=== PATIENT | male | born 1960 | race Hispanic/Latino ===

== ENCOUNTER 2023-10-05 20:08 | Emergency (ER) | payer BC ==
[~2023-10-05] VITALS: Ht 172.7 cm; Wt 113.4 kg
[2023-10-05 20:40] VITALS: RESP 19; TEMP 98.7
[2023-10-05 21:21] LABS: BASOPHILS % 0.5 % (0.0-1.0); EOSINOPHILS # (AUTO) 0.4 (0.0-0.4); EOSINOPHILS % 5.9 % (0.0-6.0); HEMATOCRIT 29.4 % (38.2-49.6); HEMOGLOBIN 10.1 g/dL (14.0-18.0); LYMPHOCYTES # (AUTO) 1.5 (1.0-3.2); LYMPHOCYTES % 23.4 % (18.0-39.1); MEAN CORPUSCULAR HEMOGLOBIN 32.9 pg (28-32); MEAN CORPUSCULAR HGB CONC 34.4 g/dL (31-35); MEAN CORPUSCULAR VOLUME 95.8 fL (81-99); MONOCYTES # (AUTO) 0.6 (0.2-0.8); MONOCYTES % 8.9 % (4.4-11.3); NEUTROPHILS # (AUTO) 3.8 (2.1-6.9); PLATELET COUNT 104 x10e3/uL (140-360); RED BLOOD COUNT 3.07 x10e6/uL (4.3-5.7); RED CELL DISTRIBUTION WIDTH 13.3 % (11.7-14.4); WHITE BLOOD COUNT 6.27 x10e3/uL (4.8-10.8)
[2023-10-05 21:22] LABS: CLARITY,URINE CLEAR (CLEAR); COLOR,URINE YELLOW (YELLOW); GLUCOSE, URINE 500 (NEGATIVE); KETONES,URINE NEGATIVE (NEGATIVE); LEUKOCYTE ESTERASE ,URINE NEGATIVE (NEGATIVE); NITRITE,URINE NEGATIVE (NEGATIVE); PH,URINE 6.5 (5 - 7); PROTEIN,URINE DIPSTICK NEGATIVE (NEGATIVE)
[2023-10-05 21:23] LABS: BILIRUBIN,URINE NEGATIVE (NEGATIVE); URINE UROBILINOGEN 4 mg/dL (0.2 - 1)
[2023-10-05 21:43] LABS: BACTERIA,URINE RARE /HPF; EPITHELIAL CELLS,URINE FEW /LPF; RBC,URINE 0-5 /HPF (0-5); WBC,URINE (MAN) 0-5 /HPF (0-5)
[2023-10-05 22:13] LABS: ANION GAP 13.7 mmol/L (8-16); BILIRUBIN,TOTAL 0.4 mg/dL (0.2-1.2); CALCIUM 8.3 mg/dL (8.4-10.2); CREATININE, SERUM 0.73 mg/dL (0.72-1.25); POTASSIUM 3.7 mmol/L (3.5-5.1); TOTAL PROTEIN 5.9 g/dL (6.5-8.1)
[2023-10-05 22:15] VITALS: PULSE 80
[2023-10-05] MEDS ORDERED: IOPAMIDOL 370 MG/ML 100 ML INFUS..BTL INJ ONE (22:22)
[2023-10-05] MEDS: SODIUM CHLORIDE 0.9% 1000ML 1,000 ML IV STA (22:58)
[2023-10-05] MEDS: INSULIN REGULAR, HUMAN 100 UNIT/1 ML IV STA (22:58)
[2023-10-05] MEDS ORDERED: PROTONIX20 MG PO (23:22)
[2023-10-05] MEDS ORDERED: ULTRAM 50MG50 MG PO (23:23)
[2023-10-06 00:19] VITALS: BP 125/79; O2SAT 96
== END 2023-10-06 00:06 | disposition home or self-care (01) ==
LOC: ER 20:37
DX: M79.605 Pain in left leg (principal); R73.9 Hyperglycemia, unspecified; R19.5 Other fecal abnormalities; K21.9 Gastro-esophageal reflux disease without esophagitis
CPT/HCPCS: 36415; 73590; 74174; 80053; 81001; 82948; 85025; 99284; J7030; Q9967

== ENCOUNTER → 2023-12-27 | Outpatient (REF) | payer BC ==
[~2023-12-27] MED LIST: GLIPIZIDE ER5 MG PO; PROPRANOLOL HCL10 MG PO; PROTONIX20 MG PO; ULTRAM 50MG50 MG PO
== END ==
LOC: US 08:05
PROVIDERS: ATTEND Nurse Practitioner
DX: K70.30 Alcoholic cirrhosis of liver without ascites (principal); I85.00 Esophageal varices without bleeding; K80.20 Calculus of gallbladder without cholecystitis without obstruction
CPT/HCPCS: 76705

== ENCOUNTER 2024-01-08 11:59 | Emergency (ER) | payer BC ==
[~2024-01-08] VITALS: Ht 172.7 cm; Wt 115.2 kg
[~2024-01-08 11:59] MED LIST changes: -FENTANYL CITRATE/PF 100MCG/2 ML INJ ONE; -HYOSCYAMINE SULFATE 0.5 MG/ML INJ ONE; -LIDOCAINE HCL 2% LOCAL INJ 5 ML SDV VIAL INJ ONE; -ONDANSETRON ODT4 MG PO; -PANTOPRAZOLE SO40 MG PO; -PROPOFOL IV EMULSION 10 MG/ML 20 ML VIAL ONE; -REGLAN5 MG PO
[2024-01-08 12:05] VITALS: TEMP 98.1
[2024-01-08 12:52] LABS: BASOPHILS % 0.8 % (0.0-1.0); EOSINOPHILS # (AUTO) 0.2 (0.0-0.4); EOSINOPHILS % 6.5 % (0.0-6.0); HEMATOCRIT 38.4 % (38.2-49.6); HEMOGLOBIN 12.1 g/dL (14.0-18.0); LYMPHOCYTES # (AUTO) 0.9 (1.0-3.2); LYMPHOCYTES % 24.2 % (18.0-39.1); MEAN CORPUSCULAR HEMOGLOBIN 27.7 pg (28-32); MEAN CORPUSCULAR HGB CONC 31.5 g/dL (31-35); MEAN CORPUSCULAR VOLUME 87.9 fL (81-99); MONOCYTES # (AUTO) 0.4 (0.2-0.8); MONOCYTES % 11.6 % (4.4-11.3); NEUTROPHILS # (AUTO) 2.1 (2.1-6.9); NEUTROPHILS % 56.6 % (38.7-80.0); PLATELET COUNT 81 x10e3/uL (140-360); RED BLOOD COUNT 4.37 x10e6/uL (4.3-5.7); RED CELL DISTRIBUTION WIDTH 15.2 % (11.7-14.4); WHITE BLOOD COUNT 3.72 x10e3/uL (4.8-10.8)
[2024-01-08] MEDS: SODIUM CHLORIDE 0.9% 500ML 500 ML IV ONE (13:08)
[2024-01-08 13:12] LABS: ALBUMIN 3.5 g/dL (3.5-5.0); ANION GAP 11.8 mmol/L (8-16); BILIRUBIN,TOTAL 0.8 mg/dL (0.2-1.2); CALCIUM 8.9 mg/dL (8.4-10.2); CREATININE, SERUM 0.71 mg/dL (0.72-1.25); POTASSIUM 3.8 mmol/L (3.5-5.1); TOTAL PROTEIN 7.1 g/dL (6.5-8.1)
[2024-01-08 13:17] LABS: TROPONIN I 0.006 ng/mL (0-0.300)
[2024-01-08 14:12] VITALS: PULSE 68; RESP 13; O2SAT 100
[2024-01-12] MEDS ORDERED: REGLAN5 MG PO (11:39)
[2024-01-12] MEDS ORDERED: PANTOPRAZOLE SO40 MG PO (11:39)
[2024-01-12] MEDS ORDERED: ONDANSETRON ODT4 MG PO (11:39)
== END 2024-01-08 14:14 | disposition home or self-care (01) ==
LOC: ER 12:04
DX: R06.00 Dyspnea, unspecified (principal); K76.9 Liver disease, unspecified; R10.11 Right upper quadrant pain; E11.9 Type 2 diabetes mellitus without complications; K21.9 Gastro-esophageal reflux disease without esophagitis
CPT/HCPCS: 36415; 71045; 80053; 84484; 85025; 93005; 99284; J7040

== ENCOUNTER → 2024-01-08 | Day surgery (SDC) | payer BC ==
[~2024-01-08] MED LIST changes: +FENTANYL CITRATE/PF 100MCG/2 ML INJ ONE; +HYOSCYAMINE SULFATE 0.5 MG/ML INJ ONE; +LIDOCAINE HCL 2% LOCAL INJ 5 ML SDV VIAL INJ ONE; +ONDANSETRON ODT4 MG PO; +PANTOPRAZOLE SO40 MG PO; +PROPOFOL IV EMULSION 10 MG/ML 20 ML VIAL ONE; +REGLAN5 MG PO
[2024-01-08] MEDS: LACTATED RINGER'S 1,000 ML ONE (08:07)
[2024-01-08 10:11] VITALS: TEMP 97.8
[2024-01-08] MEDS: FENTANYL CITRATE/PF 100MCG/2 ML INJ ONE (10:45)
[2024-01-08 10:55] VITALS: BP 135/89; PULSE 72; RESP 16; O2SAT 97
[2024-01-08 10:59] LABS: CHOL/HDL RATIO 2.4 (3.9-4.7)
== END | disposition home or self-care (01) ==
LOC: OR 07:32
PROVIDERS: ATTEND Internal Medicine Gastroenterology
DX: K74.60 Unspecified cirrhosis of liver (principal); I85.10 Secondary esophageal varices without bleeding; K31.7 Polyp of stomach and duodenum; K29.70 Gastritis, unspecified, without bleeding; K44.9 Diaphragmatic hernia without obstruction or gangrene; K76.6 Portal hypertension; K31.89 Other diseases of stomach and duodenum; K22.89 Other specified disease of esophagus; K21.9 Gastro-esophageal reflux disease without esophagitis; D64.9 Anemia, unspecified; E75.5 Other lipid storage disorders; E11.9 Type 2 diabetes mellitus without complications; E66.9 Obesity, unspecified; Z88.8 Allergy status to other drugs, medicaments and biological substances; Z79.84 Long term (current) use of oral hypoglycemic drugs; Z79.899 Other long term (current) drug therapy
CPT/HCPCS: 36415; 43239; 43244; 80061; J2003; J2470; J2704; J3010; J7121; 43255; J1980

== ENCOUNTER 2024-01-09 11:25 | Inpatient (IN) | payer BC ==
[~2024-01-09] VITALS: Ht 172.7 cm; Wt 114.8 kg
[2024-01-09 11:25] VITALS: TEMP 98.4
[2024-01-09 12:25] LABS: HEMATOCRIT 39.3 % (38.2-49.6); HEMOGLOBIN 12.6 g/dL (14.0-18.0); LYMPHOCYTES # (AUTO) 0.7 (1.0-3.2); LYMPHOCYTES % 9.4 % (18.0-39.1); MEAN CORPUSCULAR HEMOGLOBIN 27.8 pg (28-32); MEAN CORPUSCULAR HGB CONC 32.1 g/dL (31-35); MEAN CORPUSCULAR VOLUME 86.6 fL (81-99); MONOCYTES # (AUTO) 0.6 (0.2-0.8); MONOCYTES % 7.6 % (4.4-11.3); NEUTROPHILS # (AUTO) 6.3 (2.1-6.9); NEUTROPHILS % 82.6 % (38.7-80.0); RED BLOOD COUNT 4.54 x10e6/uL (4.3-5.7); RED CELL DISTRIBUTION WIDTH 15.3 % (11.7-14.4); WHITE BLOOD COUNT 7.59 x10e3/uL (4.8-10.8)
[2024-01-09 12:26] LABS: PLATELET COUNT 98 x10e3/uL (140-360)
[2024-01-09 12:27] LABS: INR 1.13; PROTHROMBIN TIME 15.2 seconds (11.9-14.5)
[2024-01-09 12:28] LABS: PARTIAL THROMBOPLASTIN TIME 26.9 seconds (23.8-35.5)
[2024-01-09 12:39] LABS: ALBUMIN 3.6 g/dL (3.5-5.0); ALBUMIN/GLOBULIN RATIO 0.9 (0.8-2.0); ANION GAP 13.6 mmol/L (8-16); BILIRUBIN,TOTAL 1.1 mg/dL (0.2-1.2); CALCIUM 9.1 mg/dL (8.4-10.2); CREATININE, SERUM 0.76 mg/dL (0.72-1.25); MAGNESIUM 1.8 MG/DL (1.3-2.1); POTASSIUM 3.6 mmol/L (3.5-5.1); TOTAL PROTEIN 7.4 g/dL (6.5-8.1)
[2024-01-09 12:45] LABS: TROPONIN I 0.017 ng/mL (0-0.300)
[2024-01-09] MEDS: ONDANSETRON HCL INJ 2MG/ML 2ML 2 MG/ML VIAL IV STA (12:52)
[2024-01-09] MEDS: SODIUM CHLORIDE 0.9% 500ML 500 ML IV ONE (12:52)
[2024-01-09] MEDS ORDERED: IOPAMIDOL 370 MG/ML 100 ML INFUS..BTL INJ ONE (12:53)
[2024-01-09] MEDS: PROMETHAZINE 12.5MG/ NACL 0.9% 12.5 MG/50 ML BAG IV ONE (14:49)
[2024-01-09 14:55] VITALS: PULSE 85; RESP 16
[2024-01-09] MEDS: SODIUM CHLORIDE 0.9% 1000ML 1,000 ML IV SCH (15:45)
[2024-01-09 15:58] VITALS: BP 137/73; PULSE 91; RESP 17; TEMP 98.9; O2SAT 97
[2024-01-09 15:59] VITALS: BP 137/73; PULSE 91; RESP 17; TEMP 98.9; O2SAT 97
[2024-01-09 20:00] VITALS: BP 129/70; PULSE 91; RESP 18; TEMP 97.2; O2SAT 96
[2024-01-09] MEDS: ONDANSETRON HCL INJ 2MG/ML 2ML 2 MG/ML VIAL IV PRN (20:28)
[2024-01-09 21:00] VITALS: BP 129/70; PULSE 91; RESP 18; TEMP 97.2; O2SAT 96
[2024-01-10] VITALS (8 sets, daily range): BP systolic 121–143; BP diastolic 57–95; PULSE 72–88; RESP 18–20; TEMP 98.1–98.9; O2SAT 96–100
[2024-01-10] MEDS: METOCLOPRAMIDE HCL 10 MG/2ML VIAL IV SCH (00:16)
[2024-01-10 05:41] LABS: BASOPHILS % 0.3 % (0.0-1.0); HEMATOCRIT 34.7 % (38.2-49.6); HEMOGLOBIN 11.4 g/dL (14.0-18.0); LYMPHOCYTES # (AUTO) 1.2 (1.0-3.2); LYMPHOCYTES % 17.8 % (18.0-39.1); MEAN CORPUSCULAR HEMOGLOBIN 27.6 pg (28-32); MEAN CORPUSCULAR HGB CONC 32.9 g/dL (31-35); MONOCYTES # (AUTO) 0.9 (0.2-0.8); MONOCYTES % 13.7 % (4.4-11.3); NEUTROPHILS # (AUTO) 4.6 (2.1-6.9); NEUTROPHILS % 67.9 % (38.7-80.0); PLATELET COUNT 91 x10e3/uL (140-360); RED BLOOD COUNT 4.13 x10e6/uL (4.3-5.7); RED CELL DISTRIBUTION WIDTH 15.6 % (11.7-14.4)
[2024-01-10 06:04] LABS: ALBUMIN 3.3 g/dL (3.5-5.0); ALBUMIN/GLOBULIN RATIO 1.1 (0.8-2.0); ANION GAP 12.6 mmol/L (8-16); CALCIUM 8.4 mg/dL (8.4-10.2); CREATININE, SERUM 0.69 mg/dL (0.72-1.25); POTASSIUM 3.6 mmol/L (3.5-5.1); TOTAL PROTEIN 6.3 g/dL (6.5-8.1)
[2024-01-10] MEDS: PROPRANOLOL HCL 10 MG TAB PO SCH (17:50)
[2024-01-11] VITALS (7 sets, daily range): BP systolic 117–156; BP diastolic 66–91; PULSE 72–81; RESP 18–20; TEMP 98.1–98.5; O2SAT 98–100
[2024-01-11] MEDS: PROMETHAZINE 12.5MG/ NACL 0.9% 12.5 MG/50 ML BAG IV PRN (00:03)
[2024-01-11 05:44] LABS: BASOPHILS % 0.5 % (0.0-1.0); EOSINOPHILS % 0.7 % (0.0-6.0); HEMATOCRIT 36.1 % (38.2-49.6); HEMOGLOBIN 11.6 g/dL (14.0-18.0); LYMPHOCYTES % 15.9 % (18.0-39.1); MEAN CORPUSCULAR HEMOGLOBIN 28.1 pg (28-32); MEAN CORPUSCULAR HGB CONC 32.1 g/dL (31-35); MEAN CORPUSCULAR VOLUME 87.4 fL (81-99); MONOCYTES # (AUTO) 0.8 (0.2-0.8); MONOCYTES % 12.7 % (4.4-11.3); NEUTROPHILS # (AUTO) 4.2 (2.1-6.9); NEUTROPHILS % 69.9 % (38.7-80.0); PLATELET COUNT 80 x10e3/uL (140-360); RED BLOOD COUNT 4.13 x10e6/uL (4.3-5.7); RED CELL DISTRIBUTION WIDTH 15.2 % (11.7-14.4); WHITE BLOOD COUNT 6.04 x10e3/uL (4.8-10.8)
[2024-01-11 06:03] LABS: ANION GAP 13.5 mmol/L (8-16); CALCIUM 8.4 mg/dL (8.4-10.2); CREATININE, SERUM 0.68 mg/dL (0.72-1.25); POTASSIUM 3.5 mmol/L (3.5-5.1)
[2024-01-12 04:00] VITALS: BP 122/77; RESP 20; TEMP 98.9; O2SAT 99
[2024-01-12 08:00] VITALS: BP 152/90; PULSE 76; RESP 19; TEMP 99.1; O2SAT 98
[2024-01-12 08:32] LABS: BASOPHILS % 0.5 % (0.0-1.0); EOSINOPHILS # (AUTO) 0.1 (0.0-0.4); HEMATOCRIT 40.4 % (38.2-49.6); HEMOGLOBIN 12.8 g/dL (14.0-18.0); LYMPHOCYTES % 17.1 % (18.0-39.1); MEAN CORPUSCULAR HEMOGLOBIN 27.6 pg (28-32); MEAN CORPUSCULAR HGB CONC 31.7 g/dL (31-35); MEAN CORPUSCULAR VOLUME 87.1 fL (81-99); MONOCYTES # (AUTO) 0.6 (0.2-0.8); MONOCYTES % 10.2 % (4.4-11.3); NEUTROPHILS # (AUTO) 4.1 (2.1-6.9); NEUTROPHILS % 70.9 % (38.7-80.0); PLATELET COUNT 104 x10e3/uL (140-360); RED BLOOD COUNT 4.64 x10e6/uL (4.3-5.7); RED CELL DISTRIBUTION WIDTH 14.9 % (11.7-14.4); WHITE BLOOD COUNT 5.78 x10e3/uL (4.8-10.8)
[2024-01-12 08:46] LABS: ANION GAP 13.7 mmol/L (8-16); CALCIUM 8.7 mg/dL (8.4-10.2); CREATININE, SERUM 0.71 mg/dL (0.72-1.25); POTASSIUM 3.7 mmol/L (3.5-5.1)
[2024-01-12 10:07] VITALS: BP 152/90; PULSE 76; RESP 19; TEMP 99.1; O2SAT 98
[2024-01-12] MEDS ORDERED: PANTOPRAZOLE SO40 MG PO (11:39)
[2024-01-12] MEDS ORDERED: REGLAN5 MG PO (11:39)
[2024-01-12] MEDS ORDERED: ONDANSETRON ODT4 MG PO (11:39)
[2024-01-12 12:00] VITALS: BP 110/77; PULSE 73; RESP 23; TEMP 99.4; O2SAT 98
== END 2024-01-12 12:55 | disposition home or self-care (01) | DRG 392 ==
LOC: ER 11:34 → ERHOLD 14:20 → MED/SURG2 15:49 → OBSVTOIN 01-11 09:47
PROVIDERS: ADMIT Internal Medicine; ATTEND Internal Medicine
DX: R11.2 Nausea with vomiting, unspecified (principal); I85.10 Secondary esophageal varices without bleeding; E11.9 Type 2 diabetes mellitus without complications; K21.9 Gastro-esophageal reflux disease without esophagitis; K76.0 Fatty (change of) liver, not elsewhere classified; K74.60 Unspecified cirrhosis of liver; Z88.6 Allergy status to analgesic agent; Z79.84 Long term (current) use of oral hypoglycemic drugs; K80.20 Calculus of gallbladder without cholecystitis without obstruction; D69.59 Other secondary thrombocytopenia
CPT/HCPCS: 36415; 74177; 80048; 80053; 82550; 82948; 83690; 83735; 84484; 85025; 85610; 85730; 86850; 86900; 99284; G0378; J2405; J2470; J2550; J2765; J7030; J7040; Q9967

== ENCOUNTER 2024-12-02 09:23 | Emergency (ER) | payer BC ==
[~2024-12-02] VITALS: Ht 172.7 cm; Wt 113.4 kg
[~2024-12-02 09:23] MED LIST changes: +ONDANSETRON ODT4 MG PO; +PANTOPRAZOLE SO40 MG PO; +REGLAN5 MG PO
[2024-12-02 09:41] VITALS: TEMP 97.8
[2024-12-02 11:31] VITALS: PULSE 82; RESP 18
[2024-12-02 11:33] VITALS: BP 136/77; PULSE 82; RESP 18; O2SAT 100
== END 2024-12-02 11:15 | disposition home or self-care (01) ==
LOC: ER 09:33
DX: S20.211A Contusion of right front wall of thorax, initial encounter (principal); W01.0XXA Fall on same level from slipping, tripping and stumbling without subsequent striking against object, initial encounter; Y93.01 Activity, walking, marching and hiking; Y99.0 Civilian activity done for income or pay; E11.9 Type 2 diabetes mellitus without complications; K76.9 Liver disease, unspecified
CPT/HCPCS: 71101; 99283